=== PATIENT | male | born 1950 | race Caucasian/White ===

== ENCOUNTER 2017-09-01 11:32 | Day surgery (SDC) | payer OTHER ==
[~2017-09-01 11:32] MED LIST: CEFAZOLIN 1 GM INJ; CEFAZOLIN 2 GM/50 ML (PMX) 50 ML IVPB; SOD CHLORIDE 0.9% 1,000 ML IV
[2017-09-01] MEDS ORDERED: PROPOFOL 20 ML (15:50)
[2017-09-01] MEDS ORDERED: ROCURONIUM 50 MG INJ (15:50)
[2017-09-01] MEDS ORDERED: ROPIVACAINE 0.5 % 30 ML VIAL (15:51)
[2017-09-01] MEDS ORDERED: METOCLOPRAMIDE 10 MG INJ (15:51)
[2017-09-01] MEDS ORDERED: MIDAZOLAM 1 MG/ML 2 ML INJ (15:51)
[2017-09-01] MEDS ORDERED: ONDANSETRON 4 MG INJ (15:51)
[2017-09-01] MEDS ORDERED: FENTAnyl 50 MCG/ML VIAL (15:52)
[2017-09-01] MEDS ORDERED: LIDOCAINE 2% (SDV) 5 ML INJ (15:56)
[2017-09-01] MEDS ORDERED: PHENYLephrine (100 MCG/ML) 10ML SYG (16:13)
[2017-09-01] MEDS ORDERED: EPHEDrine 50 MG INJ (16:13)
[2017-09-01] MEDS: POLYMYXIN/BACITRACIN 1L IRRIG (16:18)
[2017-09-01] MEDS: BUPIVACAINE 0.25% (MPF) 30 ML INJ (16:18)
[2017-09-01] MEDS ORDERED: GLYCOPYRROLATE 0.4 MG INJ (16:39)
[2017-09-01] MEDS ORDERED: NEOSTIGMINE 3 MG/3 ML SYRINGE (16:39)
[2017-09-01] MEDS ORDERED: MEPERIDINE 25 MG INJ IV (17:00)
[2017-09-01] MEDS ORDERED: HYDROCODONE/APAP (5/325) TAB PO (17:00)
[2017-09-01] MEDS ORDERED: DIPHENHYDRAMINE 50 MG INJ IV (17:00)
[2017-09-01] MEDS ORDERED: HYDROmorphONE 1 MG/5 ML IV SYRINGE IV ×2 (17:00)
[2017-09-01] MEDS: HYDROmorphONE 1 MG/5 ML IV SYRINGE IV (17:18)
[2017-09-01] MEDS: ONDANSETRON 4 MG INJ IV (17:18)
[2017-09-01] MEDS ORDERED: ROPIVACAINE 0.2% 20 ML VIAL (17:36)
== END 2017-09-01 18:27 | disposition home or self-care (01) ==
LOC: SDS 11:32
DX: K40.30 Unilateral inguinal hernia, with obstruction, without gangrene, not specified as recurrent (principal); I10 Essential (primary) hypertension; E78.5 Hyperlipidemia, unspecified; I25.2 Old myocardial infarction
CPT/HCPCS: 49507